=== PATIENT | male | born 1980 | race African-American/Black ===

== ENCOUNTER 2016-11-11 10:42 | Emergency (ER) | payer OTHER ==
[~2016-11-11] VITALS: Ht 172.7 cm; Wt 97.0 kg
[~2016-11-11 10:42] MED LIST: ACET-703 PO; DICL75TA PO; OMEP40CA2 PO; PRIL20CA9 PO; RANI150T PO
[2016-11-11 10:44] VITALS: BP 134/74; PULSE 78; RESP 15; TEMP 98.4; O2SAT 98
--- NOTE | 2016-11-11 11:02 | PD ---
HPI Chief Complaint: Abdominal Pain Time Seen by Provider: 11:02 Travel History International Travel<30 days: No Contact w/Intl Traveler<30days: No Traveled to known affect area: No History of Present Illness HPI 36-year-old male presents to the emergency department for evaluation of right lower abdominal pain worsening over last 3 days. Patient states it radiates around his side and has become more isolated to the right lower quadrant over the last 3 days. He has been mildly nauseous today without vomiting. No bowel changes. No urinary symptoms. No fever or chills. She has remote history of abdominal surgery for pyloric stenosis as an infant but no surgery since then. He has no other symptoms to report at this time. [facility] Past Medical History Diabetes: Yes ("BORDERLINE") Patient Takes Glucophage: No Past Surgical History Abdominal Surgery: Yes (SURGERY A CHILD) Social History Alcohol Use: Yes (2 BEERS A DAY) Tobacco Use: Yes (3 CIGARS A DAY) Substance Use: No Allergies-Medications (Allergen,Severity, Reaction): Coded Allergies: No Known Allergies (Verified , 11/11/16) Reported Meds & Prescriptions Reported Meds & Active Scripts Active Reported Prilosec (Omeprazole) 20 Mg Cap 20 Mg PO DAILY Review of Systems Except as stated in HPI: all other systems reviewed are Neg Physical Exam Narrative GENERAL: Well-nourished male patient, lying in bed in no acute distress SKIN: Focused skin assessment warm/dry. HEAD: Atraumatic. Normocephalic. EYES: Pupils equal and round. No scleral icterus. No injection or drainage. ENT: No nasal bleeding or discharge. Mucous membranes pink and moist. NECK: Trachea midline. No JVD. CARDIOVASCULAR: Regular rate and rhythm. No murmur appreciated. RESPIRATORY: No accessory muscle use. Clear to auscultation. Breath sounds equal bilaterally. GASTROINTESTINAL: Abdomen soft, nondistended. Mild guarding right lower quadrant and inferior to the umbilicus. No rebound tenderness.. Hepatic and splenic margins not palpable. MUSCULOSKELETAL: No obvious deformities. No clubbing. No cyanosis. No edema. NEUROLOGICAL: Awake and alert. No obvious cranial nerve deficits. Motor grossly within normal limits. Normal speech. PSYCHIATRIC: Appropriate mood and affect; insight and judgment normal. Data Data Last Documented VS Vital Signs Date Time Temp Pulse Resp B/P Pulse Ox O2 Delivery O2 Flow Rate FiO2 11/11/16 10:57 18 11/11/16 10:44 98.4 78 134/74 98 Orders Basic Metabolic Panel (Bmp) (11/11/16 11:04) Complete Blood Count With Diff (11/11/16 11:04) Prothrombin Time / Inr (Pt) (11/11/16 11:04) Act Partial Throm Time (Ptt) (11/11/16 11:04) Urinalysis - C+S If Indicated (11/11/16 11:04) Ct Abd/Pel W Iv Contrast(Rout) (11/11/16 11:04) Iv Access Insert/Monitor (11/11/16 11:04) Ecg Monitoring (11/11/16 11:04) Oximetry (11/11/16 11:04) Ondansetron Inj (Zofran Inj) (11/11/16 11:15) Sodium Chlor 0.9% 1000 Ml Inj (Ns 1000 M (11/11/16 11:04) Sodium Chloride 0.9% Flush (Ns Flush) (11/11/16 11:15) Iohexol 350 Inj (Omnipaque 350 Inj) (11/11/16 12:30) Labs Laboratory Tests Test 11/11/16 11:11 White Blood Count 9.6 TH/MM3 Red Blood Count 5.81 MIL/MM3 Hemoglobin 13.8 GM/DL Hematocrit 43.2 % Mean Corpuscular Volume 74.5 FL Mean Corpuscular Hemoglobin 23.8 PG Mean Corpuscular Hemoglobin 31.9 % Concent Red Cell Distribution Width 14.5 % Platelet Count 249 TH/MM3 Mean Platelet Volume 7.4 FL Neutrophils (%) (Auto) 66.6 % Lymphocytes (%) (Auto) 19.7 % Monocytes (%) (Auto) 8.8 % Eosinophils (%) (Auto) 4.5 % Basophils (%) (Auto) 0.4 % Neutrophils # (Auto) 6.4 TH/MM3 Lymphocytes # (Auto) 1.9 TH/MM3 Monocytes # (Auto) 0.8 TH/MM3 Eosinophils # (Auto) 0.4 TH/MM3 Basophils # (Auto) 0.0 TH/MM3 CBC Comment AUTO DIFF Differential Comment AUTO DIFF CONFIRMED Ovalocytes 1+ Prothrombin Time 10.0 SEC Prothromb Time International 0.9 RATIO Ratio Activated Partial 27.1 SEC Thromboplast Time Urine Color YELLOW Urine Turbidity CLEAR Urine pH 5.5 Urine Specific Stow 1.027 Urine Protein NEG mg/dL Urine Glucose (UA) NEG mg/dL Urine Ketones NEG mg/dL Urine Occult Blood NEG Urine Nitrite NEG Urine Bilirubin NEG Urine Urobilinogen LESS THAN 2.0 MG/DL Urine Leukocyte Esterase NEG Urine WBC LESS THAN 1 /hpf Urine Squamous Epithelial <1 /hpf Cells Urine Mucus FEW /lpf Microscopic Urinalysis Comment CULT NOT INDICATED Sodium Level 137 MEQ/L Potassium Level 4.4 MEQ/L Chloride Level 103 MEQ/L Carbon Dioxide Level 29.7 MEQ/L Anion Gap 4 MEQ/L Blood Urea Nitrogen 16 MG/DL Creatinine 1.21 MG/DL Estimat Glomerular Filtration 82 ML/MIN Rate Random Glucose 97 MG/DL Calcium Level 8.7 MG/DL [facility] Medical Decision Making Medical Screen Exam Complete: Yes Emergency Medical Condition: Yes Medical Record Reviewed: Yes Differential Diagnosis Appendicitis versus colitis versus diverticulitis versus muscle strain versus flank pain versus renal calculi Narrative Course 36-year-old male presents to emergency department for evaluation of right lower abdominal pain. Patient appears overall well and without distress. Vital signs are stable. He does have mild right lower quadrant pain to palpation. No rebound tenderness or guarding. Laboratory Tests Test 11/11/16 11:11 White Blood Count 9.6 TH/MM3 Red Blood Count 5.81 MIL/MM3 Hemoglobin 13.8 GM/DL Hematocrit 43.2 % Mean Corpuscular Volume 74.5 FL Mean Corpuscular Hemoglobin 23.8 PG Mean Corpuscular Hemoglobin 31.9 % Concent Red Cell Distribution Width 14.5 % Platelet Count 249 TH/MM3 Mean Platelet Volume 7.4 FL Neutrophils (%) (Auto) 66.6 % Lymphocytes (%) (Auto) 19.7 % Monocytes (%) (Auto) 8.8 % Eosinophils (%) (Auto) 4.5 % Basophils (%) (Auto) 0.4 % Neutrophils # (Auto) 6.4 TH/MM3 Lymphocytes # (Auto) 1.9 TH/MM3 Monocytes # (Auto) 0.8 TH/MM3 Eosinophils # (Auto) 0.4 TH/MM3 Basophils # (Auto) 0.0 TH/MM3 CBC Comment AUTO DIFF Differential Comment AUTO DIFF CONFIRMED Ovalocytes 1+ Prothrombin Time 10.0 SEC Prothromb Time International 0.9 RATIO Ratio Activated Partial 27.1 SEC Thromboplast Time Urine Color YELLOW Urine Turbidity CLEAR Urine pH 5.5 Urine Specific Stow 1.027 Urine Protein NEG mg/dL Urine Glucose (UA) NEG mg/dL Urine Ketones NEG mg/dL Urine Occult Blood NEG Urine Nitrite NEG Urine Bilirubin NEG Urine Urobilinogen LESS THAN 2.0 MG/DL Urine Leukocyte Esterase NEG Urine WBC LESS THAN 1 /hpf Urine Squamous Epithelial <1 /hpf Cells Urine Mucus FEW /lpf Microscopic Urinalysis Comment CULT NOT INDICATED Sodium Level 137 MEQ/L Potassium Level 4.4 MEQ/L Chloride Level 103 MEQ/L Carbon Dioxide Level 29.7 MEQ/L Anion Gap 4 MEQ/L Blood Urea Nitrogen 16 MG/DL Creatinine 1.21 MG/DL Estimat Glomerular Filtration 82 ML/MIN Rate Random Glucose 97 MG/DL Calcium Level 8.7 MG/DL Last Impressions Abdomen/Pelvis CT 11/11/16 1104 Signed Impressions: Service Date/Time: Friday, November 11, 2016 12:19 - CONCLUSION: Negative, I do not see an etiology for patient's pain. There is very minimal prominence to the collecting system on the right, probably physiologic. Abrahan Calvo MD FACR I discussed the patient with my attending physician. Patient is resting in the head with his eyes closed. He is arousable. I discussed the results with the patient. He'll be discharged home to follow-up with primary care provider. He agrees to return immediately with any acute worsening of symptoms. Diagnosis Primary Impression: Abdominal pain Qualified Code: R10.31 - Right lower quadrant abdominal pain Referrals: Primary Care Physician Patient Instructions: Abdominal Pain (ED), General Instructions Departure Forms: Tests/Procedures, Work Release Enter return to work date: Nov 12, 2016 Additional Instructions: Maintain adequate oral hydration Tylenol and/or ibuprofen as directed on package as needed for pain Return immediately with any acute worsening of symptoms Med/Other Pt SpecificInfo: No Change to Meds Disposition: 01 DISCHARGE HOME Condition: Stable Cathie Awad STEVEN Nov 11, 2016 11:02
[2016-11-11] MEDS ORDERED: SODIUM CHLOR 0.9% 1000 ML INJ 1,000 ML IV SCH (11:04)
[2016-11-11] MEDS ORDERED: ONDANSETRON HCL 4 MG/2 ML VIAL IVP ONE (11:15)
[2016-11-11] MEDS ORDERED: SODIUM CHLORIDE 0.9% FLUSH 10 ML FLUSH IV FLUSH PRN (11:15)
[2016-11-11 11:24] LABS: AUTOMATED NEUTROPHIL # 6.4 TH/MM3 (1.8-7.7); BASOPHIL % 0.4 % (0.0-2.0); EOSINOPHIL # 0.4 TH/MM3 (0-0.4); EOSINOPHIL % 4.5 % (0.0-4.0); HEMATOCRIT 43.2 % (39.0-51.0); LYMPH % 19.7 % (9.0-44.0); LYMPHOCYTE # 1.9 TH/MM3 (1.0-4.8); MEAN CELL VOLUME 74.5 FL (80.0-100.0); MEAN CORPUSCULAR HEMOGLOBIN 23.8 PG (27.0-34.0); MEAN CORPUSCULAR HGB CONC 31.9 % (32.0-36.0); MONO % 8.8 % (0.0-8.0); NEUT % 66.6 % (16.0-70.0); PLATELET COUNT 249 TH/MM3 (150-450); RED BLOOD COUNT 5.81 MIL/MM3 (4.50-5.90); RED CELL DISTRIBUTION WIDTH 14.5 % (11.6-17.2); WHITE BLOOD COUNT 9.6 TH/MM3 (4.0-11.0)
[2016-11-11 11:26] LABS: HEMO FLAGS AUTO DIFF
[2016-11-11 11:27] LABS: BLOOD, URINE NEG (NEG); COMMENT (UR) CULT NOT INDICATED; CULTURE IF INDICATED CULT NOT INDICATED; GLUCOSE,URINE NEG (NEG); KETONE, URINE NEG (NEG); MUCUS URINE FEW /lpf (OCC); NITRITE,URINE NEG (NEG); PH, URINE 5.5 (5.0-8.5); SQUAMOUS EPITHELIAL CELL URINE <1 /hpf (0-5); URINE COLOR YELLOW (YELLW/STRAW)
[2016-11-11 11:37] LABS: APTT (PATIENT) 27.1 SEC (24.3-30.1); INTERNATIONAL NORMALIZED RATIO 0.9 RATIO
[2016-11-11 11:57] LABS: OVALOCYTES 1+ (NORMAL); SCAN/DIFF AUTO DIFF CONFIRMED
[2016-11-11 11:59] LABS: BICARBONATE 29.7 MEQ/L (21.0-32.0); POTASSIUM 4.4 MEQ/L (3.5-5.1)
[2016-11-11] MEDS ORDERED: IOHEXOL 350 MG/ML 10 ML VIAL (for RAD DIAG) IV ONE (12:30)
--- NOTE | 2016-11-11 12:38 | RADRPT ---
EXAM DATE/TIME: 11/11/2016 12:19 [place] COMPARISON: No previous studies available for comparison. INDICATIONS : Right lower quadrant pain for three days. IV CONTRAST: 95 cc Omnipaque 350 (iohexol) IV ORAL CONTRAST: No oral contrast ingested. RADIATION DOSE: 13.94 CTDIvol (mGy) MEDICAL HISTORY : None SURGICAL HISTORY : None. ENCOUNTER: Initial ACUITY: 1 day PAIN SCALE: 7/10 LOCATION: abdomen TECHNIQUE: Volumetric scanning of the abdomen and pelvis was performed. Using automated exposure control and ad justment of the mA and/or kV according to patient size, radiation dose was kept as low as reasonably achievable to obtain optimal diagnostic quality images. FINDINGS: The lung base is are clear. The liver, spleen, pancreas and adrenal glands are unremarkable. There is symmetrical renal function with very mild prominence of the right collecting system. The region of the cecum and appendix appear normal. The appendix is not dilated nor is there abnorma l enhancement. Pelvic contents are unremarkable. There is no ascites, adenopathy or mass. The abdominal wall is in tact. Review of bone windows reveals mild degenerative changes in the lumbar spine. CONCLUSION: Negative, I do not see an etiology for patient's pain. There is very minimal promine nce to the collecting system on the right, probably physiologic. Abrahan Calvo MD FACR on November 11, 2016 at 12:33 Board Certified Radiologist. This report was verified electronically.
== END 2016-11-11 13:05 | disposition home or self-care (01) ==
LOC: NEPD 10:42
DX: R10.31 Right lower quadrant pain (principal); R11.0 Nausea; R73.03 Prediabetes; Z72.0 Tobacco use
CPT/HCPCS: 74177; 80048; 81001; 85025; 85610; 85730; 96361; 96374; 99284; J2405; J7030; Q9967

== ENCOUNTER 2017-01-26 16:02 | Emergency (ER) | payer OTHER ==
[~2017-01-26] VITALS: Ht 175.3 cm; Wt 94.0 kg
[~2017-01-26 16:02] MED LIST changes: -ACET-703 PO; -DICL75TA PO; -OMEP40CA2 PO; -RANI150T PO
[2017-01-26 16:03] VITALS: BP 123/74; PULSE 93; RESP 15; TEMP 98.2; O2SAT 98
--- NOTE | 2017-01-26 16:31 | PD ---
Physical Exam Time Seen by Provider: 16:29 Narrative 36 y/o male presents for evaluation of a laceration at the base of the L thumb sustained today on a piece of glass. Vital signs reviewed. Seen at triage desk. Awaiting bed placement. Data Data Last Documented VS Vital Signs Date Time Temp Pulse Resp B/P Pulse Ox O2 Delivery O2 Flow Rate FiO2 01/26/17 16:03 98.2 93 15 123/74 98 MDM Medical Record Reviewed: Yes Supervised Visit with JANELLE: [place] Jan 26, 2017 16:31
[2017-01-26] MEDS ORDERED: LIDOCAINE HCL 1% 30 ML VIAL INFIL ONE (17:30)
[2017-01-26] MEDS ORDERED: TETANUS/DIPHTHERIA TOXOID ADULT 0.5 ML VIAL IM ONE (17:30)
--- NOTE | 2017-01-26 17:36 | PD ---
HPI Chief Complaint: Laceration/Skin Injury Time Seen by Provider: 17:32 Travel History International Travel<30 days: No Contact w/Intl Traveler<30days: No Traveled to known affect area: No History of Present Illness HPI 36-year-old Afro-[place] male presents for is part with laceration to the dorsal lateral left thumb. 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 He is unsure of his last tetanus. His pain is a 3 out of 10. He has no numbness, tingling, or loss of function. Bleeding is controlled. Patient has no known drug allergies. PFSH Past Medical History Diabetes: Yes ("BORDERLINE") Past Surgical History Abdominal Surgery: Yes (SURGERY A CHILD) Social History Alcohol Use: Yes (2 BEERS A DAY) Tobacco Use: Yes (3 CIGARS A DAY) Substance Use: No Allergies-Medications (Allergen,Severity, Reaction): Coded Allergies: No Known Allergies (Verified , 01/26/17) Reported Meds & Prescriptions Reported Meds & Active Scripts Active No Active Prescriptions or Reported Medications Review of Systems Except as stated in HPI: all other systems reviewed are Neg General / Constitutional: No: Fever Eyes: No: Visual changes HENT: No: Headaches Cardiovascular: No: Chest Pain or Discomfort Respiratory: No: Shortness of Breath Gastrointestinal: No: Abdominal Pain Genitourinary: No: Dysuria Musculoskeletal: No: Pain Skin: No Rash Neurologic: No: Weakness Psychiatric: No: Depression Endocrine: No: Polydipsia Hematologic/Lymphatic: No: Easy Bruising Physical Exam Narrative GENERAL: Patient appears in mild distress. SKIN: Warm and dry. No color. Normal turgor. Patient has a 2 cm linear laceration to the dorsal lateral proximal left thumb. It does not involve the underlying tissues. HEAD: Atraumatic. Normocephalic. EYES: Pupils equal and round. No scleral icterus. No injection or drainage. ENT: No nasal bleeding or discharge. Mucous membranes pink and moist. NECK: Trachea midline. No JVD. CARDIOVASCULAR: Regular rate and rhythm. RESPIRATORY: No accessory muscle use. Clear to auscultation. Breath sounds equal bilaterally. MUSCULOSKELETAL: Extremities without clubbing, cyanosis, or edema. No obvious deformities. 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 NEUROLOGICAL: Awake and alert. No obvious cranial nerve deficits. Motor grossly within normal limits. Five out of 5 muscle strength in the arms and legs. Normal speech. PSYCHIATRIC: Appropriate mood and affect; insight and judgment normal. Data Data Last Documented VS Vital Signs Date Time Temp Pulse Resp B/P Pulse Ox O2 Delivery O2 Flow Rate FiO2 01/26/17 16:03 98.2 93 15 123/74 98 Orders Tetanus/Diphtheria Tox Adult (Tetanus/Di (01/26/17 17:30) Lidocaine 1% Inj (Xylocaine 1% Inj) (01/26/17 17:30) [facility] Medical Decision Making Medical Screen Exam Complete: Yes Emergency Medical Condition: Yes Differential Diagnosis Left thumb injury. Left thumb laceration. Need for sutures. Narrative Course Patient is medically stable at time of exam. Patient is given tetanus 0.5 mg IM. Laceration was repaired. Please see procedure note. Dressing is placed and should remain in place for the next 48 hours. Patient is to take Keflex 500 mg 3 times a day 5 days. Sutures should remain in place for the next 7 days. Patient should not submerge the left hand, and keep the area clean and dry until sutures are out. Patient can take Tylenol and ibuprofen as needed for pain. Patient should follow-up in 7 days for suture removal. He can follow-up sooner with worsening symptoms as needed. Procedures Procedure Narrative LACERATION LOCATION: Left proximal dorsal lateral felt LENGTH: 2 cm NUMBER OF STITCHES/LARA: 3 simple interrupted REPAIR: The area of the laceration was prepped with Betadine and sterilely draped. The laceration was infiltrated with 2.5 mL of 1% lidocaine. The wound was copiously irrigated and explored without evidence of foreign body, tendon injury or neurovascular injury. The wound was closed using 5-0 Prolene. This was a single layer repair. A sterile dressing was applied. The patient was advised to keep the dressing clean and dry. Patient tolerated the procedure well. Diagnosis Primary Impression: Laceration of left thumb without complication Qualified Code: S61.012A - Laceration of left thumb without complication, initial encounter Patient Instructions: Finger Laceration (ED), General Instructions Additional Instructions: Dressing is placed and should remain in place for the next 48 hours. Patient is to take Keflex 500 mg 3 times a day 5 days. Sutures should remain in place for the next 7 days. Patient should not submerge the left hand, and keep the area clean and dry until sutures are out. Patient can take Tylenol and ibuprofen as needed for pain. Patient should follow-up in 7 days for suture removal. He can follow-up sooner with worsening symptoms as needed. Med/Other Pt SpecificInfo: Wound Care Scripts Cephalexin 500 Mg [id number] Mg PO Q8H #15 CAP Prov:Patricia Cordero MD 01/26/17 Disposition: 01 DISCHARGE HOME Condition: Stable Abel Mancuso Jan 26, 2017 17:36
[2017-01-26] MEDS ORDERED: CEPH500C PO (17:52)
== END 2017-01-26 18:11 | disposition home or self-care (01) ==
LOC: NEPK 16:02
DX: S61.012A Laceration without foreign body of left thumb without damage to nail, initial encounter (principal); W25.XXXA Contact with sharp glass, initial encounter; Y93.89 Activity, other specified; Y92.89 Other specified places as the place of occurrence of the external cause; Y99.0 Civilian activity done for income or pay
CPT/HCPCS: 12001; 90471; 90714

== ENCOUNTER 2017-03-25 02:44 | Emergency (ER) | payer OTHER ==
[~2017-03-25] VITALS: Ht 175.3 cm; Wt 95.0 kg
[~2017-03-25 02:44] MED LIST changes: +CEPH500C PO; -PRIL20CA9 PO
[2017-03-25 02:45] VITALS: BP 173/108; PULSE 107; RESP 18; TEMP 98.8; O2SAT 98
[2017-03-25 02:57] VITALS: RESP 20; O2SAT 99
[2017-03-25] MEDS ORDERED: PRIL20TA2 (03:06)
[2017-03-25] MEDS ORDERED: ONDANSETRON HCL 4 MG/2 ML VIAL IV ONE (03:15)
[2017-03-25] MEDS ORDERED: SODIUM CHLOR 0.9% 1000 ML INJ 1,000 ML IV ONE (03:15)
[2017-03-25] MEDS ORDERED: fentaNYL CITRATE 250 MCG/5 ML AMP IV PUSH ONE (03:15)
[2017-03-25] MEDS ORDERED: DIATRIZOATE MEGLUM/DIATRIZOATE SOD 9 ML CUP ONE (03:20)
--- NOTE | 2017-03-25 03:24 | PD ---
HPI Chief Complaint: Abdominal Pain Time Seen by Provider: 02:55 Travel History International Travel<30 days: No Contact w/Intl Traveler<30days: No Traveled to known affect area: No History of Present Illness HPI The patient is a 36 year old male who presents to the [facility] emergency department with a history of abdominal pain that he reports began 2 days ago. He reports that the pain is been constant. He reports that the character of the pain is a "pain". He reports that the severity of the pain is 100 out of 10. He reports that the pain is related to his ulcers. He reports that he was diagnosed with ulcers at 27 years of age. He denies ever having endoscopy or colonoscopy. He is unsure whether he is at her had an upper GI series. The patient reports that he was started on omeprazole by his primary care physician , however it has not been helping. He reports that he was given another medication, however he did not start this medication. He is unsure why he did not take the medicine that was previously prescribed. He denies having any nausea or vomiting. He denies having any diarrhea. His last bowel movement was 2 days ago. He reports that he feels like he needs to move his bowels, however when he tries to push the pain increases. He reports that the pain is in the midepigastric area. On review of systems otherwise, the patient denies any recent fevers, cough, congestion, neck pain, chest pain, shortness of breath , urinary symptoms, or neurologic symptoms. PFSH Past Medical History Narrative Medical The patient's past medical history is significant for being borderline diabetic , history of peptic ulcers. Diabetes: Yes ("BORDERLINE") Diminished Hearing: No Tetanus Vaccination: Unknown Past Surgical History Narrative Surgical The patient's past surgical history is significant for pyloric stenosis repair as an Abdominal Surgery: Yes (SURGERY A CHILD) Social History Alcohol Use: Yes (wine occasionally) Tobacco Use: No Substance Use: No Allergies-Medications (Allergen,Severity, Reaction): Coded Allergies: No Known Allergies (Verified , 03/25/17) Reported Meds & Prescriptions Reported Meds & Active Scripts Active Reported Prilosec (Omeprazole Magnesium) 20 Mg Tab Review of Systems Except as stated in HPI: all other systems reviewed are Neg General / Constitutional: No: Fever Eyes: No: Visual changes HENT: No: Headaches Cardiovascular: No: Chest Pain or Discomfort Respiratory: No: Shortness of Breath Gastrointestinal: Positive: Abdominal Pain, Constipation, Changes in Bowel Habits, No: Nausea, Vomiting, Diarrhea, Hematemesis, Hematochezia, Indigestion, Loss of Appetite Genitourinary: No: Dysuria Musculoskeletal: No: Pain Skin: No Rash Neurologic: No: Weakness Psychiatric: No: Depression Endocrine: No: Polydipsia Hematologic/Lymphatic: No: Easy Bruising Physical Exam Narrative General: The patient is a well-developed well-nourished male, uncomfortable appearing on arrival, writhing around in the bed, laying on his side. Head and Neck exam: Head is normocephalic atraumatic. Eyes: EOMI, pupils are equal round and reactive to light. Nose: Midline septum with pink mucous membranes Mouth: Dentition unremarkable. Moist mucus membranes. Posterior oropharynx is not erythematous. No tonsillar hypertrophy. Uvula midline. Airway patent. Neck: No palpable lymphadenopathy. No nuchal rigidity. No thyromegaly. Cardiovascular: Sinus tachycardia in the low 100 without murmurs, gallops, or rubs. No pulse deficit to the extremities and simultaneous auscultation and palpation of his radial artery. Lungs: Clear to auscultation bilaterally. No wheezes, rhonchi, or rales. Abdomen: Soft, with tenderness on palpation of the midepigastric area and bilateral upper quadrants of the abdomen, no other tenderness on palpation. No guarding, rebound, or rigidity. The patient has normal bowel sounds are audible. No tenderness on palpation of McBurney's point. Negative Hurtado's sign. Extremities: No clubbing, cyanosis, or edema. 2+ pulses in all 4 extremities. No calf tenderness on palpation. Back: No costovertebral angle tenderness to palpation. Neurologic Exam: Grossly nonfocal. Skin Exam: No rash noted. Intact skin that is warm and dry. Data Data Last Documented VS Vital Signs Date Time Temp Pulse Resp B/P (MAP) Pulse Ox O2 Delivery O2 Flow Rate FiO2 03/25/17 04:40 84 21 169/93 (118) 100 Room Air 03/25/17 02:45 98.8 Orders Orders Complete Blood Count With Diff (03/25/17 02:58) Comprehensive Metabolic Panel (03/25/17 02:58) C-Reactive Protein (Crp) (03/25/17 02:58) Lipase (03/25/17 02:58) Urinalysis - C+S If Indicated (03/25/17 02:58) Magnesium (Mg) (03/25/17 02:58) Iv Access Insert/Monitor (03/25/17 02:58) Ecg Monitoring (03/25/17 02:58) Oximetry (03/25/17 02:58) Ct Abd/Pel W Iv Contrast(Rout) (03/25/17 03:08) Ondansetron Inj (Zofran Inj) (03/25/17 03:15) Sodium Chlor 0.9% 1000 Ml Inj (Ns 1000 M (03/25/17 03:15) Fentanyl Inj (Fentanyl Inj) (03/25/17 03:15) Oral Contrast - Adult (03/25/17 03:15) Diatrizoate Liq ( Gastroview Liq) (03/25/17 03:20) Fentanyl Inj (Fentanyl Inj) (03/25/17 03:24) Ketorolac Inj (Toradol Inj) (03/25/17 04:30) Iohexol 350 Inj (Omnipaque 350 Inj) (03/25/17 05:12) Labs Laboratory Tests Test 03/25/17 03:10 03/25/17 04:19 White Blood Count 7.2 TH/MM3 Red Blood Count 5.73 MIL/MM3 Hemoglobin 13.7 GM/DL Hematocrit 42.2 % Mean Corpuscular Volume 73.6 FL Mean Corpuscular Hemoglobin 23.9 PG Mean Corpuscular Hemoglobin Concent 32.4 % Red Cell Distribution Width 14.6 % Platelet Count 247 TH/MM3 Mean Platelet Volume 7.1 FL Neutrophils (%) (Auto) 54.4 % Lymphocytes (%) (Auto) 30.2 % Monocytes (%) (Auto) 9.6 % Eosinophils (%) (Auto) 5.2 % Basophils (%) (Auto) 0.6 % Neutrophils # (Auto) 3.9 TH/MM3 Lymphocytes # (Auto) 2.2 TH/MM3 Monocytes # (Auto) 0.7 TH/MM3 Eosinophils # (Auto) 0.4 TH/MM3 Basophils # (Auto) 0.0 TH/MM3 CBC Comment DIFF FINAL Differential Comment Blood Urea Nitrogen 17 MG/DL Creatinine 1.09 MG/DL Random Glucose 97 MG/DL Total Protein 7.2 GM/DL Albumin 3.6 GM/DL Calcium Level 8.4 MG/DL Magnesium Level 2.0 MG/DL Alkaline Phosphatase 81 U/L Aspartate Amino Transf (AST/SGOT) 19 U/L Alanine Aminotransferase (ALT/SGPT) 40 U/L Total Bilirubin 0.2 MG/DL Sodium Level 136 MEQ/L Potassium Level 4.0 MEQ/L Chloride Level 105 MEQ/L Carbon Dioxide Level 26.2 MEQ/L Anion Gap 5 MEQ/L Estimat Glomerular Filtration Rate 93 ML/MIN C-Reactive Protein LESS THAN 0.29 MG/DL Lipase 123 U/L Urine Color LIGHT-YELLOW Urine Turbidity CLEAR Urine pH 6.0 Urine Specific [place] 1.024 Urine Protein NEG mg/dL Urine Glucose (UA) NEG mg/dL Urine Ketones NEG mg/dL Urine Occult Blood NEG Urine Nitrite NEG Urine Bilirubin NEG Urine Urobilinogen LESS THAN 2.0 MG/DL Urine Leukocyte Esterase NEG Urine WBC LESS THAN 1 /hpf Urine Squamous Epithelial Cells <1 /hpf Urine Mucus FEW /lpf Microscopic Urinalysis Comment CULT NOT INDICATED MDM Medical Decision Making Medical Screen Exam Complete: Yes Emergency Medical Condition: Yes Medical Record Reviewed: Yes Interpretation(s) Last Impressions Abdomen/Pelvis CT 03/25/17 0308 Signed Impressions: Service Date/Time: March 04:59 - CONCLUSION: 1. No acute abnormality to explain patient's abdominal pain. 2. Normal appendix. Venkata Guillen MD Differential Diagnosis Acute pancreatitis, versus peptic ulcer disease, versus diverticulitis, versus bowel obstruction, versus gastritis, versus biliary colic, versus acute cholecystitis Narrative Course During the course of the patients emergency department visit, the patients history, examination, and differential diagnosis were reviewed with the patient. The patient had IV access obtained and blood work sent for analysis. The patient was placed on a cardiac exercise physiologist with oximetry and blood pressure monitoring. A CT scan of the abdomen and pelvis with oral and IV contrast was ordered. The patient was initially provided normal saline 1 L IV fluid bolus, sent off 50 g IV, Zofran 4 mg IV. The patient had a recurrence of pain and was given Toradol 15 mg IV. The patients laboratory studies were reviewed and remarkable for a white count of 7.2, hemoglobin 13.7, platelets 247 with 9.6 monocytes, CMP is unremarkable, C-reactive protein less than 0.29, lipase 123, urinalysis is unremarkable. Radiology studies were reviewed and remarkable for a CT scan of the abdomen and pelvis that shows no acute abnormality. The patient is instructed to discontinue omeprazole. The patient will instead be given a prescription for Protonix. The patient is instructed to follow-up with a capture manager for endoscopy and colonoscopy. The patient is given the name of the capture manager on-call, Dr. Liao for a follow-up. The patient is resting comfortably and feels better, is alert and in no distress. The patients results and examination findings were discussed with the patient. The repeat examination is unremarkable and benign. The history, exam, diagnostic testing, and current condition do not suggest any significant pathology to warrant further testing, continued ED treatment, admission, or surgical evaluation at this point. The vital signs have been stable. The patient does not have uncontrollable pain, intractable vomiting, or other significant symptoms. The patient's condition is stable and appropriate for discharge. The patient will pursue further outpatient evaluation with a primary care physician or other designated or consulting physician as indicated in the discharge instructions. The patient expressed understanding and was agreeable with this plan. Diagnosis Primary Impression: Abdominal pain Qualified Codes: R10.13 - Epigastric pain Referrals: Leatha Monique MD 1 week Animal Shelter Clerk 1 week Primary Care Physician 2 days Patient Instructions: Abdominal Pain (ED), General Instructions Med/Other Pt SpecificInfo: Prescription(s) given, Med Stopped (stop omeprazole/Prilosec) Disposition: 01 DISCHARGE HOME Condition: Stable Celeste Colmenares MD Mar 25, 2017 03:24
[2017-03-25 03:28] LABS: AUTOMATED NEUTROPHIL # 3.9 TH/MM3 (1.8-7.7); BASOPHIL % 0.6 % (0.0-2.0); EOSINOPHIL # 0.4 TH/MM3 (0-0.4); EOSINOPHIL % 5.2 % (0.0-4.0); HEMATOCRIT 42.2 % (39.0-51.0); HEMO FLAGS DIFF FINAL; LYMPH % 30.2 % (9.0-44.0); LYMPHOCYTE # 2.2 TH/MM3 (1.0-4.8); MEAN CELL VOLUME 73.6 FL (80.0-100.0); MEAN CORPUSCULAR HEMOGLOBIN 23.9 PG (27.0-34.0); MEAN CORPUSCULAR HGB CONC 32.4 % (32.0-36.0); MONO % 9.6 % (0.0-8.0); NEUT % 54.4 % (16.0-70.0); PLATELET COUNT 247 TH/MM3 (150-450); RED BLOOD COUNT 5.73 MIL/MM3 (4.50-5.90); RED CELL DISTRIBUTION WIDTH 14.6 % (11.6-17.2); WHITE BLOOD COUNT 7.2 TH/MM3 (4.0-11.0)
[2017-03-25 03:34] VITALS: BP 157/90; PULSE 78; RESP 22; O2SAT 100
[2017-03-25 03:47] LABS: ALT (GPT) 40 U/L (12-78); ANION GAP 5 MEQ/L (5-15); AST (GOT) 19 U/L (15-37); BICARBONATE 26.2 MEQ/L (21.0-32.0); BLOOD UREA NITROGEN 17 MG/DL (7-18); CHLORIDE 105 MEQ/L (98-107); GLOMERULAR FILTRATION RATE 93 ML/MIN (>89); SODIUM (NA) 136 MEQ/L (136-145)
[2017-03-25 03:49] LABS: ALKALINE PHOSPHATASE 81 U/L (45-117); TOTAL BILIRUBIN ADULT 0.2 MG/DL (0.2-1.0)
[2017-03-25] MEDS ORDERED: KETOROLAC TROMETHAMINE 30 MG/ML (IVP) VIAL IV PUSH ONE (04:30)
[2017-03-25 04:40] VITALS: BP 169/93; PULSE 84; RESP 21; O2SAT 100
[2017-03-25 04:41] LABS: BLOOD, URINE NEG (NEG); COMMENT (UR) CULT NOT INDICATED; CULTURE IF INDICATED CULT NOT INDICATED; GLUCOSE,URINE NEG (NEG); KETONE, URINE NEG (NEG); MUCUS URINE FEW /lpf (OCC); NITRITE,URINE NEG (NEG); SQUAMOUS EPITHELIAL CELL URINE <1 /hpf (0-5); URINE COLOR LIGHT-YELLOW (YELLW/STRAW)
[2017-03-25] MEDS ORDERED: IOHEXOL 350 MG/ML 10 ML VIAL (for RAD DIAG) IVCONTRAST ONE (05:12)
--- NOTE | 2017-03-25 05:21 | RADRPT ---
EXAM DATE/TIME: 03/25/2017 04:59 [facility] COMPARISON: CT ABDOMEN & PELVIS W CONTRAST, November 11, 2016, 12:19. INDICATIONS : Bilateral upper quadrant pain. IV CONTRAST: 85 cc Omnipaque 350 (iohexol) IV ORAL CONTRAST: Prescribed oral contrast ingested. RADIATION DOSE: 15.81 CTDIvol (mGy) MEDICAL HISTORY : None SURGICAL HISTORY : None. ENCOUNTER: Initial ACUITY: 1 day PAIN SCALE: 8/10 LOCATION: Bilateral upper quadrant TECHNIQUE: Volumetric scanning of the abdomen and pelvis was performed. Using automated exposure control and ad justment of the mA and/or kV according to patient size, radiation dose was kept as low as reasonably achievable to obtain optimal diagnostic quality images. DICOM format image data is available electro nically for review and comparison. FINDINGS: LOWER LUNGS: Minimal bibasilar groundglass opacities consistent with atelectasis. LIVER: Homogeneous density without lesion. There is no dilation of the biliary tree. No calcified gallston es. SPLEEN: Normal size without lesion. PANCREAS: Within normal limits. KIDNEYS: Normal in size and shape. There is no mass, stone or hydronephrosis. ADRENAL GLANDS: Within normal limits. VASCULAR: There is no aortic aneurysm. BOWEL/MESENTERY: The stomach, small bowel, and colon demonstrate no acute abnormality. Appendix is visualized and nor mal in appearance. There is no free intraperitoneal air or fluid. ABDOMINAL WALL: Small periumbilical fat containing hernia. RETROPERITONEUM: There is no lymphadenopathy. BLADDER: No wall thickening or mass. REPRODUCTIVE: Within normal limits. INGUINAL: There is no lymphadenopathy or hernia. MUSCULOSKELETAL: Within normal limits for patient age. CONCLUSION: 1. No acute abnormality to explain patient's abdominal pain. 2. Normal appendix. Venkata Guillen MD on March 25, 2017 at 5:14 Board Certified Radiologist. This report was verified electronically.
[2017-03-25] MEDS ORDERED: PROT40TA PO (05:47)
[2017-03-25 06:13] VITALS: BP 146/70
[2017-04-02] MEDS ORDERED: SUCR1TAB PO (11:05)
[2017-04-02] MEDS ORDERED: LANS30CA PO (11:05)
[2017-04-14] MEDS ORDERED: NEXI20CA PO ×2 (22:25→22:26)
== END 2017-03-25 06:47 | disposition home or self-care (01) ==
LOC: NEPC 02:44
DX: R10.13 Epigastric pain (principal); R00.0 Tachycardia, unspecified
CPT/HCPCS: 74177; 80053; 81001; 83690; 83735; 85025; 86140; 96361; 96374; 96375; 99285; J1885; J2405; J3010; J7030; Q9963; Q9967